=== PATIENT | male | born 1950 ===

== ENCOUNTER 2024-11-14 06:08 | Day surgery (SDC) | payer MEDICARE, BC, SELFPAY ==
[2024-11-14] VITALS (9 sets, daily range): BP systolic 122–162; BP diastolic 69–92; BMI 32.8
[2024-11-14] MEDS: TYLENOL 1000 MG PO (07:56)
[2024-11-14] MEDS: METHOCARBAMOL 1500 MG PO (07:57)
[2024-11-14] MEDS: LYRICA 150 MG PO (07:57)
[2024-11-14] MEDS: NORMOSOL-R/PLASMALYTE-A 1000 IV (07:57)
[2024-11-14] MEDS: DILAUDID 0.5 MG IV ×2 (10:01→10:20)
[2024-11-14] MEDS: ZOFRAN 4 MG IV (10:04)
[2024-11-14] MEDS: ROXICODONE 10 MG PO (11:42)
== END 2024-11-14 12:07 | disposition home or self-care (01) ==
LOC: SDS 06:08
PROVIDERS: ATTENDING PHYSICIAN Orthopaedic Surgery Orthopaedic Surgery of the Spine
DX: M48.061 Spinal stenosis, lumbar region without neurogenic claudication (principal)
CPT/HCPCS: 63047; 72020